=== PATIENT | female | born 1965 | race African-American/Black ===

== ENCOUNTER 2019-08-24 12:54 | Emergency (ER) | payer SELFPAY ==
[2019-08-24] MEDS ORDERED: Nitroglycerin 0.4 MG TAB 1 EACH ONE (13:27)
[2019-08-24] MEDS ORDERED: Aspirin Chewable 81 MG TAB ONE (13:27)
[2019-08-24 13:33] LABS: #Basophils 0.1 thou/uL (0.0-0.2); #Lymphocytes 2.4 thou/uL (1.20-3.40); #Monocytes 0.5 thou/uL (0.11-0.59); #Neutrophils 3.3 thou/uL (1.40-6.50); %Basophils 0.9 % (0.0-1.0); %Eosinophils 0.7 % (0.0-10.0); %Lymphocytes 38.6 % (21.0-51.0); %Monocytes 7.9 % (0.0-10.0); %Neutrophils 51.9 % (42.0-75.0); Mean Corpuscular HGB CONC 33.7 g/dL (32.0-36.0); Mean Corpuscular Hemoglobin 31.8 pg (27.0-31.0); Mean Corpuscular Volume 94.4 fL (78.0-98.0); Mean Platelet Volume 8.3 fL (7.4-10.4); Platelet Count 271 thou/uL (130-400); RBC Distribution Width 11.4 % (11.5-14.5); Red Blood Cell (RBC) Count 3.76 mill/uL (4.20-5.40); White Blood Cell (WBC) Count 6.3 thou/uL (4.8-10.8)
--- NOTE | 2019-08-24 13:36 | RAD ---
Exam: Chest one view HISTORY:Chest pain Comparison: None FINDINGS: Cardiac silhouette: Normal Aorta: Unremarkable Pulmonary vessels: Normal Costophrenic angles: Clear LUNGS: No masses or consolidation. Pneumothorax: None Osseous abnormalities: None IMPRESSION: No acute cardiopulmonary process.
[2019-08-24] MEDS ORDERED: Acetaminophen 500 MG TAB ONE (13:38)
[2019-08-24 14:00] LABS: ALT (SGPT) 12 U/L (8-55); AST (SGOT) 12 U/L (5-34); Albumin 3.6 g/dL (3.5-5.0); Alkaline Phosphatase 72 U/L (40-110); Anion Gap 10 mmol/L (10-20); BUN (Urea Nitrogen) 20 mg/dL (9.8-20.1); Bilirubin, Total 0.2 mg/dL (0.2-1.2); Calc. Creatinine Clearance 0 mL/min (70-130); Calcium 9.5 mg/dL (7.8-10.44); Carbon Dioxide 28 mmol/L (22-29); Chloride 106 mmol/L (98-107); Estimated GFR-MDRD 44; Globulin 3.1 g/dL (2.4-3.5); Glucose 136 mg/dL (70-105); Lipase 33 U/L (8-78); Potassium 4.8 mmol/L (3.5-5.1); Protein, Total 6.7 g/dL (6.0-8.3); Sodium 139 mmol/L (136-145)
[2019-08-24] MEDS ORDERED: Morphine 4 MG/ML VIAL ONE (17:14)
[2019-08-24 18:15] LABS: Troponin I Less than 0.010 ng/mL (< 0.028)
--- NOTE | 2019-08-24 18:16 | ULT ---
Gallbladder ultrasound: Multiple grayscale images of right upper quadrant obtained according to protocol. INDICATION: Pain FINDINGS: Liver: Normal Gallbladder: Absent Common bile duct is 9 mm, likely reservoir effect. Ascites: None IMPRESSION: Surgically absent gallbladder.
== END 2019-08-24 19:51 | disposition home or self-care (01) ==
LOC: ERS 12:54
DX: K21.9 Gastro-esophageal reflux disease without esophagitis (principal); E87.6 Hypokalemia; E87.1 Hypo-osmolality and hyponatremia; I25.2 Old myocardial infarction; E11.9 Type 2 diabetes mellitus without complications; Z79.899 Other long term (current) drug therapy
CPT/HCPCS: 36415; 71045; 76705; 80053; 83690; 84484; 85025; 93005; 96374; J2270

== ENCOUNTER 2019-08-26 08:44 | Observation (INO) | payer SELFPAY ==
[2019-08-26] MEDS ORDERED: Nitroglycerin 2% Ointment 1 INCH/1 GM Packet ONE (09:11)
[2019-08-26 09:17] LABS: #Basophils 0.1 thou/uL (0.0-0.2); #Eosinphils 0.1 thou/uL (0.0-0.7); #Lymphocytes 2.4 thou/uL (1.20-3.40); #Monocytes 0.4 thou/uL (0.11-0.59); #Neutrophils 2.3 thou/uL (1.40-6.50); %Eosinophils 1.1 % (0.0-10.0); %Lymphocytes 45.3 % (21.0-51.0); %Monocytes 8.4 % (0.0-10.0); %Neutrophils 44.2 % (42.0-75.0); Hemoglobin 12.6 g/dL (12.0-16.0); Mean Corpuscular HGB CONC 33.4 g/dL (32.0-36.0); Mean Corpuscular Hemoglobin 31.6 pg (27.0-31.0); Mean Corpuscular Volume 94.6 fL (78.0-98.0); Mean Platelet Volume 8.5 fL (7.4-10.4); Platelet Count 245 thou/uL (130-400); RBC Distribution Width 11.5 % (11.5-14.5); Red Blood Cell (RBC) Count 3.99 mill/uL (4.20-5.40); White Blood Cell (WBC) Count 5.2 thou/uL (4.8-10.8)
--- NOTE | 2019-08-26 09:32 | RAD ---
XR Chest 1 View Portable HISTORY: Chest pain COMPARISON: 08/24/2019 FINDINGS: The heart size is normal. The lungs are well expanded without focal areas of consolidation, pneumothorax or pleural effusions. IMPRESSION: No radiographic evidence of acute cardiopulmonary process.
[2019-08-26 09:35] LABS: ALT (SGPT) 11 U/L (8-55); AST (SGOT) 11 U/L (5-34); Albumin 3.6 g/dL (3.5-5.0); Alkaline Phosphatase 67 U/L (40-110); Anion Gap 13 mmol/L (10-20); BUN (Urea Nitrogen) 16 mg/dL (9.8-20.1); Bilirubin, Total 0.2 mg/dL (0.2-1.2); CK (CPK) 55 U/L (29-168); Calc. Creatinine Clearance 0 mL/min (70-130); Calcium 9.3 mg/dL (7.8-10.44); Carbon Dioxide 24 mmol/L (22-29); Chloride 106 mmol/L (98-107); Estimated GFR-MDRD 49; Globulin 3.4 g/dL (2.4-3.5); Glucose 96 mg/dL (70-105); Lipase 16 U/L (8-78); Potassium 4.2 mmol/L (3.5-5.1); Sodium 139 mmol/L (136-145)
[2019-08-26] MEDS ORDERED: Acetaminophen 500 MG TAB ONE (09:35)
--- NOTE | 2019-08-26 10:14 | CT ---
CT CHEST AND ABDOMEN FOLLOWING AORTOGRAM PROTOCOL WITH IV CONTRAST: Date: 08/26/19 Axial tomograms obtained with multiplanar reconstruction and 3D postprocessing. INDICATION: Chest pain, abdominal pain. Question aortic dissection. FINDINGS: Thoracic aorta is normal caliber. Minimal atherosclerotic change seen at the aortic arch. There is no dissection. Abdominal aorta is normal caliber. Minimal atherosclerotic change. No evidence of aneurysm. No eviden ce of dissection. Aortic veins including celiac artery, superior mesenteric artery, and renal arteries are patent with no evidence of stenosis. Aortic bifurcation is patent with mild atherosclerotic change in the iliac a rteries. No stenosis. Visualized lung mitchell are clear. No infiltrate or effusion. Mediastinum unremarkable. Proximal pulmo nary arteries are opacified with no evidence of proximal pulmonary embolus. Images through the soft tissues of the abdomen show a gastric band in position. Liver, spleen, and pa ncreas are unremarkable. Adrenal glands and kidneys are unremarkable. Bowel loops are unremarkable. IMPRESSION: Unremarkable aortogram. No acute findings. POS: [facility]
[2019-08-26] MEDS ORDERED: Iopamidol 370 76% 100 ML VIAL ONE (11:25)
[2019-08-26 12:38] LABS: Troponin I Less than 0.010 ng/mL (< 0.028)
[2019-08-26] MEDS ORDERED: Ondansetron ODT 4 MG TAB PO PRN (13:06)
[2019-08-26] MEDS ORDERED: Ondansetron PF 4 MG/2 ML Vial IVP PRN (13:06)
[2019-08-26 13:18] VITALS: BMI 45.2
[2019-08-26 15:34] LABS: Troponin I Less than 0.010 ng/mL (< 0.028)
[2019-08-26] MEDS ORDERED: Nitroglycerin 0.4 MG TAB (25 Tab Bottle) PO PRN (16:23)
[2019-08-26] MEDS: glipiZIDE 5 MG TAB PO SCH (16:36)
[2019-08-26 17:43] LABS: Free T4 (Free Thyroxine) 0.82 ng/dL (0.70-1.48); Thyroid Stimulating Hormone 0.4159 uIU/mL (0.35-4.94)
--- NOTE | 2019-08-26 17:47 | HP ---
PRIMARY CARE PHYSICIAN: None. CHIEF COMPLAINT: Chest pain and epigastric pain. HISTORY OF PRESENT ILLNESS: Ms. Siegel is a 54-year-old female with a past medical history of hypertension, coronary artery disease with 2 stents, diabetes mellitus type 2, previous DE, history of migraines, who is a resident at [facility], who comes in today with a complaint of chest pain over the last 3 days. She states that her pain is localized in her epigastric region and that radiates to left portion of her chest through the back and up to the right shoulder. She states that the pain has been pretty constant during this time. She was seen in the ED 2 days ago for this same thing and was treated for more of a GERD flare. She was treated with PPI and later sent home. She states that the pain continued; however, the patient was not able to fill the medication that she was given by the ED physician. She was brought in by EMS and was given aspirin and Zofran for her symptoms. When she arrived to the ED, her serial troponins were found to be negative x3. A portable chest x-ray was performed and found to be unremarkable, and a CT of the chest was also performed and found to be negative. She had denied any fever or chills; any headache, blurred vision, or dizziness; any palpitations, shortness of breath, nausea, or vomiting. She had described the pain as more of a heaviness and pressure and states it is an 8/10 in severity. REVIEW OF SYSTEMS: All other systems were reviewed and found to be negative unless mentioned in the HPI. PAST MEDICAL HISTORY: Hypertension, hyperlipidemia, gastroesophageal reflux disease, coronary artery disease, diabetes mellitus type 2, chronic kidney disease stage 2. PAST SURGICAL HISTORY: Cholecystectomy, hysterectomy, and tubal ligation. SOCIAL HISTORY: The patient is a former cocaine user. She currently denies alcohol, tobacco, or illicit drug use. KNOWN ALLERGIES: No known drug allergies. CURRENT HOME MEDICATIONS: 1. Amlodipine 10 mg daily. 2. Atorvastatin 40 mg at bedtime. 3. Diphenhydramine 25 mg b.i.d. 4. Depakote ER 500 mg daily. 5. Duloxetine 90 mg daily. 6. Glipizide 10 mg in the morning, 5 mg at bedtime. 7. Lisinopril 5 mg daily. 8. Propranolol 40 mg t.i.d. PHYSICAL EXAMINATION: VITAL SIGNS: BP 136/65, pulse 58, respirations 18, temperature 97.8, O2 saturation 94% on room air. GENERAL: The patient is awake, alert, and oriented x3. She is currently lying comfortably in bed and in no acute distress. HEENT: Atraumatic and normocephalic. Pupils are round and reactive to light. Extraocular muscles intact. Moist mucous membranes noted. NECK: Soft and supple. Trachea midline. CARDIOVASCULAR: Positive S1 and S2. Regular rate and rhythm. No murmur auscultated. RESPIRATORY: Clear to auscultation bilaterally. No wheezes, rales, or rhonchi. ABDOMEN: Soft, nontender. Bowel sounds present. EXTREMITIES: Moves all extremities equal. Pedal and radial pulses 2+ bilaterally. No edema noted. NEUROLOGIC: Cranial nerves 2 through 12 grossly intact. No focal deficits noted. Speech intact and normal. Gait not assessed. SKIN: Warm, dry, and intact. No rashes. No ulceration noted. PSYCHIATRIC: Good mood and affect. LABORATORY DATA: WBC 5.2, RBC 3.99, hemoglobin 12.6, hematocrit 37.7, platelets 245. Sodium 139, potassium 4.2, anion gap 13, BUN 16, creatinine 1.36, estimated GFR 49. Troponin less than 0.010 x3, lipase 16. DIAGNOSTIC IMAGING: Portable chest x-ray showed no evidence of acute cardiopulmonary process. CTA of chest and abdomen showed no acute findings. ASSESSMENT AND PLAN: 1. Chest pain, the patient will undergo a cardiac stress test likely in the morning to rule out acute coronary syndrome. Her serial troponins are found to be negative x3. This also appears to be possibly from her underlying GERD. Therefore, she will be treated with IV Protonix and monitor closely. Her chest x-ray and CTA of the chest and abdomen were unremarkable. 2. Hypertension. Continue home regimen. Monitor blood pressure and other vital signs closely. 3. Chronic kidney disease, stage 2. Repeat BMP in the morning. 4. Hyperlipidemia. Continue home statin. 5. History of migraines. Continue propranolol. 6. History of anxiety and depression. Continue home regimen. 7. Diabetes mellitus type 2. Continue home dose of glipizide along with an insulin sliding scale with frequent Accu-Chek's. 8. Deep venous thrombosis and gastrointestinal prophylaxis. 9. Code status, full code. DISPOSITION: Pending further workup and clinical findings. Job ID: [id number]
[2019-08-26] MEDS: diphenhydrAMINE 25 MG CAP PO SCH (20:21)
[2019-08-26] MEDS: Atorvastatin Calcium 40 MG TAB PO SCH (20:21)
[2019-08-26] MEDS: Propranolol 40 MG TAB PO SCH (20:21)
[2019-08-26] MEDS: Acetaminophen 325 MG TAB PO PRN (20:21)
[2019-08-26] MEDS: Pantoprazole 40 MG VIAL IVP SCH (20:22)
[2019-08-26] MEDS ORDERED: Lidocaine 2% Viscous Solution 10 ML, Aluminum & Magnesium Hydroxide 30 ML SSW SCH (23:59)
[2019-08-27 05:35] LABS: #Basophils 0.1 thou/uL (0.0-0.2); #Eosinphils 0.1 thou/uL (0.0-0.7); #Lymphocytes 2.7 thou/uL (1.20-3.40); #Monocytes 0.6 thou/uL (0.11-0.59); #Neutrophils 2.4 thou/uL (1.40-6.50); %Basophils 0.9 % (0.0-1.0); %Eosinophils 0.9 % (0.0-10.0); %Lymphocytes 46.2 % (21.0-51.0); %Monocytes 10.9 % (0.0-10.0); %Neutrophils 41.1 % (42.0-75.0); Hemoglobin 11.8 g/dL (12.0-16.0); Mean Corpuscular HGB CONC 34.2 g/dL (32.0-36.0); Mean Corpuscular Hemoglobin 32.3 pg (27.0-31.0); Mean Corpuscular Volume 94.5 fL (78.0-98.0); Mean Platelet Volume 8.5 fL (7.4-10.4); Platelet Count 242 thou/uL (130-400); RBC Distribution Width 11.4 % (11.5-14.5); Red Blood Cell (RBC) Count 3.65 mill/uL (4.20-5.40); White Blood Cell (WBC) Count 5.9 thou/uL (4.8-10.8)
[2019-08-27 06:03] LABS: Anion Gap 10 mmol/L (10-20); BUN (Urea Nitrogen) 15 mg/dL (9.8-20.1); Calc. Creatinine Clearance 89 mL/min (70-130); Calcium 9.1 mg/dL (7.8-10.44); Carbon Dioxide 27 mmol/L (22-29); Cardiac Risk 4.1 (Less than 4.5); Chloride 105 mmol/L (98-107); Cholesterol 159 mg/dl (< 200 Desired); Estimated GFR-MDRD 46; Glucose 102 mg/dL (70-105); HDL Cholesterol 39 mg/dL (>60 Neg Risk); LDL Cholesterol, Calculated 106 mg/dL; Potassium 4.1 mmol/L (3.5-5.1); Sodium 138 mmol/L (136-145); Triglycerides 71 mg/dL (Less than 150)
[2019-08-27] MEDS: glipiZIDE 10 MG TAB PO SCH (07:25)
[2019-08-27] MEDS: Pantoprazole 40 MG VIAL IVP SCH ×2 (07:27→20:53)
[2019-08-27] MEDS ORDERED: FLU VACC QS2019-20(6MOS UP)/PF 60 MCG/0.5 ML SYRINGE IM ONE (09:00)
[2019-08-27] MEDS: DULoxetine 30 MG CAP PO SCH (09:18)
[2019-08-27] MEDS: Propranolol 40 MG TAB PO SCH ×3 (09:18→20:53)
[2019-08-27] MEDS: Enoxaparin Sodium 40 MG/0.4 ML SYRINGE SC SCH (09:18)
[2019-08-27] MEDS: Amlodipine 10 MG TAB PO SCH (09:18)
[2019-08-27] MEDS: Lisinopril 5 MG TAB PO SCH (09:18)
[2019-08-27] MEDS: diphenhydrAMINE 25 MG CAP PO SCH ×2 (09:18→20:53)
[2019-08-27] MEDS: traMADol HCl 50 MG TAB PO PRN (11:00)
--- NOTE | 2019-08-27 11:04 | NM ---
EXAM: Cardiac SPECT HISTORY: Chest pain PROTOCOL: Stress only, single isotope TYPE OF STRESS: Pharmacologic stress with adenosine was monitored and interpreted by Richardson Mojica nurse practitioner RADIOPHARMACEUTICAL: 30 mCi technetium 99m-sestamibi injected intravenously FINDINGS: Homogeneous tracer distribution is seen in the myocardial segments on the post stress images. Gated SPECT LVEF: 73% Wall motion exam: Normal IMPRESSION: Normal post stress myocardial perfusion scan.
[2019-08-27] MEDS ORDERED: Morphine 4 MG/ML VIAL SLOW IVP PRN (14:52)
[2019-08-27] MEDS: Lactated Ringer's 1,000 ML IV SCH (15:06)
--- NOTE | 2019-08-27 15:51 | PRG ---
DATE OF SERVICE: 08/27/2019 SUBJECTIVE: The patient is seen and examined at bedside. She complains about quite significant amount of pain in the abdomen in the epigastric area, mostly on the right side. No nausea. No vomiting. No diarrhea. It fluctuates with maximum pain around 8, and when it gets better, it is down to 6. She just came back from her cardiac stress test. OBJECTIVE: VITAL SIGNS: Blood pressure is 121/66, pulse is 73, temperature is 97.5, respiratory rate is 20, and O2 saturation is 99% on room air. HEENT: Head is atraumatic and normocephalic. Eyes are PERRLA. Sclerae are nonicteric. Oral mucosa is moist. NECK: Supple. LUNGS: Clear. HEART: S1 and S2 normal. ABDOMEN: Tender in epigastric area, more on the right than on the left. Bowel sounds are sluggish. NEUROLOGIC: She follows my commands. She moves her all 4 extremities. There is no any motor or sensory deficits. LABORATORY DATA: White count of 5.9, hemoglobin 11.8, hematocrit 34.5, platelet count is 242,000. Normal chemistry except for creatinine, which is 1.42. Glucose 102, triglycerides 71, total cholesterol 159, LDL 106, HDL 39. Free T4 of 0.82 and third generation TSH 0.4159. DIAGNOSTIC STUDIES: Nuclear cardiac stress test, LVEF was estimated at 73% and wall motion was normal and this was normal post stress myocardial perfusion scan. IMPRESSION: 1. Chest/epigastric pain of unclear etiology. Her cardiac stress test came back negative for any ischemia. She still has a lot of pain. I am going to start her on morphine 4 mg q.4 hours p.r.n. IV push as needed. Continue PPI IV. We will get a Gastrointestinal Team on board. CT angiogram did not show any stenotic lesions in her abdominal area, so this cannot be ischemic in nature. The patient did not have bowel movement for the last few days, but according to her, she has irritable bowel syndrome and it can happen. We will give her laxative to help her move her bowels. 2. Hypertension. 3. Chronic kidney disease stage 2. We will start her on IV fluids. 4. Hyperlipidemia. 5. History of migraines. 6. History of anxiety and depression. 7. Diabetes mellitus type 2. 8. Basal glycemia was checked in chemistry panels and both times glucose is in good range. PLAN: Plan is to start her on IV fluids on lactated Ringer's at 100 mL/hours. Get GI consult for abdominal pain and change to morphine IV push. Job ID: [id number]
[2019-08-27 15:53] LABS: Bilirubin Negative (Negative); Blood, Urine Negative (Negative); Clarity Clear (Clear); Glucose, Urine (Dipstick) 500 mg/dL (Negative); Leukocyte 25 Leu/uL (Negative); Nitrite Negative (Negative); Protein, Urine (Dipstick) 10 mg/dL (Neg-Trace); RBC/HPF 0-3 HPF (0-3); Urobilinogen Normal mg/dL (Less than 2)
[2019-08-27 15:54] LABS: Bacteria/HPF 1+ HPF (None Seen)
[2019-08-27 15:56] LABS: Urine Culture Reflex No No
[2019-08-27] MEDS: glipiZIDE 5 MG TAB PO SCH (16:25)
[2019-08-27] MEDS ORDERED: GoLYTELY 4,000 ml Bottle PO SCH (19:00)
[2019-08-27] MEDS: Atorvastatin Calcium 40 MG TAB PO SCH (20:53)
[2019-08-28] MEDS: Lactated Ringer's 1,000 ML IV SCH ×2 (01:27→11:53)
--- NOTE | 2019-08-28 01:39 | CON ---
DATE OF CONSULTATION: 08/27/2019 REASON FOR CONSULTATION: Midepigastric abdominal pain. CONSULTING PROVIDER: Harris Nixon MD. HISTORY OF PRESENT ILLNESS: The patient is a 54-year-old female with past medical history of hypertension; coronary artery disease with myocardial infarction status post PCI, stent placement x2; diabetes, migraines, and irritable bowel syndrome, presenting with complaints of midepigastric abdominal pain. She states that she has been intermittently having this increased midepigastric pain that has been occurring for the last year and would occur every 2 to 3 months, lasting for around 2-7 days at a time. The pain is characterized as a pressure cramping type pain, will radiate to the entire abdomen and the mid back and reaches a severity of 10/10. The pain is worse with increased physical activity, drinking cold fluids, straining with having a bowel movement, and sitting up for prolonged periods of time. It is better with administration of ibuprofen (the patient taking 800 mg b.i.d.), baclofen, Vicodin, and hot compresses to the midepigastric region. The patient experienced a recurrence of this abdominal pain approximately 3 days ago and with the severity of this pain and lasting as long as it did, it prompted her to seek healthcare assistance at the [facility]. She was ultimately admitted to the hospital for a possible cardiac etiology. During the course of this admission, however, she underwent a stress test, EKG, and troponins; all of which were negative for possible cardiac etiology. With a negative workup, GI consultation was then considered. Upon further questioning the patient, she also states that over the last 2-3 years, she would have approximately 1 bowel movement weekly, characterized as a solid type stool ([place] 2 through 4) that would require increased rocking back and forth as well as rare fecal disimpaction in order to facilitate defecation. She has been diagnosed with irritable bowel syndrome in the past and had been taking fiber supplementation up until about 1 to 2 months ago, in which case she ran out and has not further filled this particular supplement. REVIEW OF SYSTEMS: A 10-category review of systems was obtained with all responses negative except for the pertinent positives as listed in HPI. PAST MEDICAL HISTORY: As per HPI. PAST SURGICAL HISTORY: Cholecystectomy, hysterectomy, bilateral tubal ligation. FAMILY HISTORY: Denies any GI malignancies. SOCIAL HISTORY: Denies any tobacco, alcohol, or illicit drug use. However, there was mentioned that she is a former cocaine user. OUTPATIENT MEDICATIONS: Reviewed. ALLERGIES: NO KNOWN DRUG ALLERGIES. PHYSICAL EXAMINATION: VITAL SIGNS: Temperature 97.6, pulse 80, blood pressure 116/64, respiratory rate 20, saturating 98% on room air. GENERAL: The patient was lying in bed, in no acute distress. Alert and oriented x4. HEENT: Normocephalic, atraumatic. NECK: Supple. No JVD or scleral icterus noted (although was hard to discern given the patient's increased neck girth). CARDIOVASCULAR: Regular rate and rhythm with no discernible murmurs, gallops, or rubs. RESPIRATORY: Clear to auscultation bilaterally with no discernible wheezes or rales. ABDOMEN: Normoactive bowel sounds. Soft, nondistended. No significant tenderness to palpation was exhibited during auscultation/distraction. However, significant tenderness to palpation was experienced in all abdominal quadrants upon direct palpation of the abdomen, especially within the midepigastric region. EXTREMITIES: No cyanosis, clubbing, or edema. LABORATORY DATA: CBC with a white blood cell count of 5.9, hemoglobin 11.8, hematocrit 34.5, platelets 242. Chemistry with a sodium of 138, potassium 4.1, chloride 105, CO2 of 27, BUN 15, creatinine 1.42, glucose 102, AST 11, ALT 11, alkaline phosphatase 67, total bilirubin 0.2. IMAGING DATA: CT dissection protocol was performed on 08/26/2019, which showed an unremarkable aortogram with no acute findings. However, imaging of the lower abdomen did show a gastric band in position, although there were no other abnormality seen. No evidence of pulmonary emboli were seen during this exam either. Nuclear stress test was also performed on 08/27/2019, which showed a normal post-stress myocardial perfusion scan. ASSESSMENT AND PLAN: The patient is a 54-year-old female with past medical history of hypertension, coronary artery disease with myocardial infarction status post 2 stents, diabetes, migraines, and history of irritable bowel syndrome presenting with increased midepigastric abdominal pain. Epigastric abdominal pain. The patient is presenting with a chronic history of increased midepigastric abdominal pain occurring approximately every 2 to 3 months, lasting for 2-7 days in duration and characterized as a pressure cramping type sensation that reaches a severity of 10/10. Based on her current character of her pain and lack of relief with having a bowel movement, it is not necessarily consistent with a diagnosis of irritable bowel syndrome. However, she does complain of significant constipation having approximately 1 solid bowel movement that does require special maneuvers in order to defecate every 7 days. In addition, the patient is a severely obese individual and it does put her at increased risk for acid reflux, although her alleviating/exacerbating factors of her pain are not necessarily consistent with acid reflux either. She was given a prescription for PPIs during her most recent ER visit, but did not fill the prescription and therefore, had not been on this medication until now. Current differential could include GERD, chronic constipation, pancreatitis (less likely given the normal lipase), musculoskeletal pain (more likely given exacerbation with any movement), psychosomatic abdominal pain (especially with lack of pain with distraction), surgical change secondary to the band gastroplasty, IBS, and/or possible GI neoplasm (much less likely). RECOMMENDATIONS: 1. Would continue the patient on IV PPI b.i.d. with strict anti-reflux precautions followed while here in the hospital. 2. I will start the patient on GoLYTELY prep to be consumed over the course of 8 hours for her severe constipation. 3. Would recommend a higher fiber diet during her hospital stay in light of her concurrent diagnosis of IBS and significant constipation. 4. Would attempt to minimize any narcotics during this admission that could further contribute to her constipation. 5. If the patient is not responding to more conservative management, we then consider endoscopic evaluation at that time. We will continue to follow. Please call with any questions. Job ID: [id number]
[2019-08-28] MEDS: glipiZIDE 10 MG TAB PO SCH (08:33)
[2019-08-28] MEDS: Calcium Carbonate 500 MG TAB PO SCH ×2 (08:33→17:27)
[2019-08-28] MEDS: DULoxetine 30 MG CAP PO SCH (08:33)
[2019-08-28] MEDS: Lisinopril 5 MG TAB PO SCH (08:35)
[2019-08-28] MEDS: Amlodipine 10 MG TAB PO SCH (08:36)
[2019-08-28] MEDS: Pantoprazole 40 MG VIAL IVP SCH ×2 (08:36→21:03)
[2019-08-28] MEDS: Propranolol 40 MG TAB PO SCH ×3 (08:36→21:01)
[2019-08-28] MEDS: diphenhydrAMINE 25 MG CAP PO SCH ×2 (08:36→21:01)
[2019-08-28] MEDS: Enoxaparin Sodium 40 MG/0.4 ML SYRINGE SC SCH (08:37)
[2019-08-28] MEDS: traMADol HCl 50 MG TAB PO PRN (11:03)
--- NOTE | 2019-08-28 11:29 | PRG ---
DATE OF SERVICE: 08/28/2019 SUBJECTIVE: The patient is seen and examined at the bedside. She had 3 watery bowel movements since yesterday. She still has quite a bit of abdominal pain in the epigastric area mainly. She says that she feels like she has a baby. There was no vomiting. OBJECTIVE: VITAL SIGNS: Blood pressure is 110/61, pulse is 55, temperature is 97.4, respiratory rate is 22, O2 saturation is 97% on room air. HEENT: Her head is atraumatic and normocephalic. Eyes are PERRLA. Sclerae are nonicteric. Oral mucosa is moist. NECK: Supple. LUNGS: Clear. HEART: S1 and S2 normal. ABDOMEN: Obese, tender in the epigastric area. No guarding. No masses. Soft. EXTREMITIES: No clubbing, cyanosis, or edema. NEUROLOGICAL: She is alert and oriented x4. There are no any motor deficits. LABORATORY DATA: None. ASSESSMENT: 1. Abdominal pain. It is not clear whether this is related to her constipation/irritable bowel syndrome. The patient was seen by Dr. Alvarenga for Gastrointestinal evaluation. He wants to approach the problem in conservative way, but if she does not respond to that, she will be scoped. 2. Hypertension, controlled. 3. Chronic kidney disease stage 2. The patient was started on IV fluids. She had 2 bags, which is 1 L of IV fluids since yesterday. We will check her BMP. 4. Hyperlipidemia. 5. History of migraines. 6. History of anxiety and depression. 7. Diabetes mellitus type 2. PLAN: So, plan is to discontinue her IV fluids, stop Her morphine injections. Her last morphine injection was yesterday. She will be observed for additional 24 hours, and we will make decision whether she needs to be scoped or not based on her clinical presentation. So far, she looks better today. The pain is not as intense as it was yesterday. Job ID: [id number]
[2019-08-28] MEDS: Acetaminophen 325 MG TAB PO PRN (14:51)
[2019-08-28] MEDS: glipiZIDE 5 MG TAB PO SCH (17:27)
[2019-08-28] MEDS: Atorvastatin Calcium 40 MG TAB PO SCH (21:02)
--- NOTE | 2019-08-28 22:16 | PRG ---
DATE OF SERVICE: 08/28/2019 REASON FOR CONSULTATION: Midepigastric abdominal pain. SUBJECTIVE: The patient was able to drink half of the GoLYTELY yesterday evening and was unable to tolerate any more. During this morning, she had approximately 6 to 8 semi-solid bowel movements and with the increased frequency of bowel movements, had a significant reduction in her abdominal pain. She states that her current pain is approximately 2 to 3/10, which has improved from the 10/10 that she experienced yesterday. Her pain continues in the midepigastric region, but again greatly improved from previous. Otherwise, she denies any nausea, vomiting, fevers, chills, hematemesis, melena, or hematochezia. OBJECTIVE: VITAL SIGNS: Temperature 98.6, pulse 56, blood pressure 110/55, respiratory rate 18, saturating 96% on room air. GENERAL: The patient was lying in bed, in no acute distress, was pleasant and appeared to be in good spirits. Alert and oriented x4. CARDIOVASCULAR: Regular rate and rhythm. RESPIRATORY: Clear to auscultation bilaterally. ABDOMEN: Normoactive bowel sounds. Soft, nondistended. Mild tenderness to the midepigastric region only. EXTREMITIES: No cyanosis, clubbing, or edema. LABORATORY DATA: No current studies are available for review. IMAGING DATA: No current studies are available for review. ASSESSMENT AND PLAN: The patient is a 54-year-old female with past medical history of hypertension, coronary artery disease with myocardial infarction, status post stents x2, diabetes, migraines, and history of irritable bowel syndrome presenting with increased midepigastric abdominal pain and constipation. Epigastric abdominal pain/constipation. The patient initially presented with recurrent midepigastric abdominal pain that had been occurring every 2 to 3 months for the last year. This was coinciding with increased constipation having approximately 1 solid bowel movement every 7 days. During the course of this admission, she was placed on a GoLYTELY prep to assist with defecation and has had approximately 6 to 8 semi-solid bowel movements over the last 24 hours with a significant reduction in her abdominal pain. At this time, the more likely reason for her abdominal pain would either be chronic idiopathic constipation or irritable bowel syndrome with constipation predominance and would likely benefit from a regular bowel regimen. At this time given the significant reduction in her pain, endoscopic management is not indicated at this time. RECOMMENDATIONS: 1. We would continue the patient on IV PPI b.i.d. with strict anti-reflux precautions given the possibility of acid reflux. 2. We would place the patient on MiraLAX daily in light of her chronic constipation. 3. We would recommend a higher fiber diet with FODMAP guidance. 4. Would attempt to minimize any narcotics during this admission that could further contribute to constipation. 5. Given her reduction in symptoms, we will sign off. From a GI standpoint, she could go home with followup in the outpatient clinic. Please call with any additional questions. Job ID: [id number]
[2019-08-29 09:16] VITALS: BP 121/59; TEMP 97.6
[2019-08-29] MEDS: DULoxetine 30 MG CAP PO SCH (09:17)
[2019-08-29] MEDS: Calcium Carbonate 500 MG TAB PO SCH (09:17)
[2019-08-29] MEDS: glipiZIDE 10 MG TAB PO SCH (09:18)
[2019-08-29] MEDS: Amlodipine 10 MG TAB PO SCH (09:18)
[2019-08-29] MEDS: Lisinopril 5 MG TAB PO SCH (09:18)
[2019-08-29] MEDS: diphenhydrAMINE 25 MG CAP PO SCH (09:18)
[2019-08-29] MEDS: Propranolol 40 MG TAB PO SCH (09:22)
[2019-08-29] MEDS: Pantoprazole 40 MG VIAL IVP SCH (09:23)
[2019-08-29] MEDS: Enoxaparin Sodium 40 MG/0.4 ML SYRINGE SC SCH (09:31)
--- NOTE | 2019-08-29 22:20 | DIS ---
DATE OF ADMISSION: 08/26/2019 DATE OF DISCHARGE: 08/29/2019 FINAL DIAGNOSES AT THE TIME OF DISCHARGE: 1. Chest pain, acute coronary syndrome was ruled out. 2. Abdominal pain, most likely related to her irritable bowel syndrome and constipation. 3. Diabetes mellitus, type 2. 4. Hypertension. 5. Chronic kidney disease stage 2. 6. Hyperlipidemia. 7. History of migraines. 8. History of anxiety and depression. CONSULTANTS: Dr. Alvarenga, Gastrointestinal Service. HOSPITAL COURSE: The patient is a 54-year-old female, who was admitted to the hospital after complaining of chest pain for the last 3 days prior to this admission. This was located in epigastric region and radiated to the left portion of her chest to the back and right shoulder. The pain was pretty constant. She was seen in the emergency room two days prior to this admission and was treated for GERD flare-up and she was sent home. Apparently, she was not able to fill the medications she was given and EMS was called and she was brought in. While in the emergency room, her white count was 5.2, hemoglobin was 12.6, hematocrit 37.7. Normal electrolytes. Creatinine 1.36. Troponin less than 0.010 x3. Lipase 16. Portable chest x-ray did not show any acute cardiopulmonary process. CT angiogram of the chest did not show any acute abnormalities. The patient got admitted to the hospital with working diagnosis of chest pain/abdominal pain. She underwent nuclear cardiac stress test, which came back within normal limits. Her ejection fraction was estimated at 73%. Subsequently, she had additional evaluation by GI Dr. Alvarenga for her abdominal pain, which was felt to be related to her constipation. She was given GoLYTELY and she had few loose bowel movements. Her abdominal pain improved. Today, she is doing quite well. She is able to tolerate her food. She is from [facility]. She is discharged home in good condition. Blood pressure is 121/59, pulse is 53, temperature 97.6, respirations 16, O2 saturation is 95% on room air. She is not in any distress. She is discharged in good condition. Activities as tolerated. Diabetic diet. MEDICATIONS: At time of discharge: 1. Protonix 40 mg once a day. 2. Benadryl 25 mg twice a day. 3. Fiber-Lax 2500 mg twice a day. 4. Amlodipine 10 mg once a day. 5. Atorvastatin 40 mg at bedtime. 6. Divalproex, which is Depakote ER 500 mg twice a day. 7. Cymbalta 90 mg daily. 8. Glipizide 10 mg every morning and glipizide 5 mg at 5 o'clock. 9. Lisinopril 5 mg daily. 10. Propranolol 40 mg 3 times a day. 11. Calcium carbonate 500 mg twice a day. FOLLOWUP: She is going to follow up with her primary care physician in 1 week. Job ID: [id number]
== END 2019-08-29 12:00 | disposition home or self-care (01) ==
LOC: ERS 08:44 → 2SW 11:22
PROVIDERS: ADMIT Internal Medicine; ATTEND Internal Medicine
DX: R10.13 Epigastric pain (principal); R07.9 Chest pain, unspecified; I25.10 Atherosclerotic heart disease of native coronary artery without angina pectoris; I25.2 Old myocardial infarction; G43.909 Migraine, unspecified, not intractable, without status migrainosus; K21.9 Gastro-esophageal reflux disease without esophagitis; I12.9 Hypertensive chronic kidney disease with stage 1 through stage 4 chronic kidney disease, or unspecified chronic kidney disease; E11.22 Type 2 diabetes mellitus with diabetic chronic kidney disease; N18.2 Chronic kidney disease, stage 2 (mild); E78.5 Hyperlipidemia, unspecified; F41.9 Anxiety disorder, unspecified; F32.9 Major depressive disorder, single episode, unspecified; K58.1 Irritable bowel syndrome with constipation; Z79.84 Long term (current) use of oral hypoglycemic drugs; Z79.899 Other long term (current) drug therapy; Z95.5 Presence of coronary angioplasty implant and graft; Z98.84 Bariatric surgery status
CPT/HCPCS: 36415; 71045; 71275; 72191; 74175; 78452; 80048; 80053; 80061; 81001; 82550; 83690; 84439; 84443; 84484; 85025; 93005; 93017; 94660; 94760; 96361; 96372; 96374; 96375; 96376; A9500; C9113; G0378; J0153; J1650; J2270; Q0163